=== PATIENT | female | born 1935 | race Caucasian/White ===

== ENCOUNTER 2018-07-06 16:49 | Inpatient (IN) | payer OTHER ==
[2018-07-06] VITALS (12 sets, daily range): BP systolic 42–156; BP diastolic 24–87
[~2018-07-06] VITALS: Ht 167.6 cm; Wt 37.2 kg
--- NOTE | 2018-07-06 16:49 | NUR ---
PT [facility] FOR MORE ALTERED THAN NORMAL AND HYPOTENSION, PT IS AAOX0, NOTED BP OF 99/64, MECH DEPENDENT, HOOKED TO MONITOR, KEPT RESTED AND COMFORTABLE, WILL CONTINUE TO MONITOR.
[2018-07-06] MEDS ORDERED: PIPERACILLIN /TAZOBACTAM 3.375 G in IV D5W 50 ML IV ONE (17:00)
[2018-07-06] MEDS ORDERED: VANCOMYCIN 500 MG VIAL IV ONE (17:00)
[2018-07-06] MEDS ORDERED: IV NS 0.9% 1,000 ML BAG IV ONE (17:00)
--- NOTE | 2018-07-06 17:00 | NUR ---
SEEN AND EXAMINED BY DR. KANG.
--- NOTE | 2018-07-06 17:10 | NUR ---
RT AT BEDSIDE FOR MECH VENT SET UP.
--- NOTE | 2018-07-06 17:13 | NUR ---
RT Pt received from facility altered and for hypotension. Received trach'd and placed on [facility] vent w charted settings. Vent plugged into red outlet w [facility]. Alarms are set and audible. Trach is patent and secure. Pt tolerating settings well. Will continue to monitor. Addendum: 07/06/18 at 1828 by KATH THOMAS RT Amended: Links added.
[2018-07-06] MEDS ORDERED: DEXTROSE 50%-WATER 50 ML DISP.SYRIN ONE (17:23)
--- NOTE | 2018-07-06 17:25 | NUR ---
LABS DRAWNED AND SENT TO LAB.
[2018-07-06] MEDS ORDERED: IV D5/0.45 NACL 1,000 ML IV ONE (17:30)
[2018-07-06] MEDS ORDERED: DEXTROSE 50%-WATER 50 ML DISP.SYRIN IVP ONE (17:30)
[2018-07-06] MEDS ORDERED: GLUCAGON,HUMAN RECOMBINANT 1 MG/VIAL VIAL IV ONE (17:30)
[2018-07-06 17:31] LABS: EOSINOPHILS % (AUTO) 0.3 % (0.0-6.0); HEMATOCRIT 22 % (33-45); HEMOGLOBIN 7.2 g/dL (11.5-14.8); LYMPHOCYTES % (AUTO) 8.8 % (20.0-44.0); MEAN CORPUSCULAR HGB CONC 33 g/dl (31.0-36.0); MEAN CORPUSCULAR VOLUME 95 fL (82-100); MONOCYTES # (AUTO) 0.5 /CMM (0.1-1.30); MONOCYTES % (AUTO) 2.2 % (2.0-12.0); NEUTROPHILS # (AUTO) 20.2 /CMM (1.8-8.9); NEUTROPHILS % (AUTO) 88.7 % (43.0-81.0); PLATELET COUNT (AUTO) 72 /CMM (150-450); RED BLOOD CELL COUNT(AUTO) 2.31 MIL/uL (4.0-5.2); WHITE BLOOD COUNT (AUTO) 22.7 K/uL (4.3-11.0)
[2018-07-06] MEDS ORDERED: GLUCAGON,HUMAN RECOMBINANT 1 MG/VIAL VIAL ONE (17:33)
[2018-07-06] MEDS ORDERED: WATER FOR INJECTION,STERILE 10 ML ONE (17:33)
[2018-07-06] MEDS ORDERED: MULT-447 GT (17:41)
[2018-07-06] MEDS ORDERED: DOCU50LI GT (17:41)
[2018-07-06] MEDS ORDERED: ACET650S26 GT ×2 (17:41)
[2018-07-06] MEDS ORDERED: INSU100V7 SQ (17:41)
[2018-07-06] MEDS ORDERED: VALP250S4 GT (17:41)
[2018-07-06] MEDS ORDERED: LANS30CA56 GT (17:41)
[2018-07-06] MEDS ORDERED: IPRA3AMP23 IH ×2 (17:41)
[2018-07-06] MEDS ORDERED: BISA10SU8 RC (17:41)
[2018-07-06] MEDS ORDERED: AMIN30LI27 GT (17:41)
[2018-07-06] MEDS ORDERED: ZINC220C6 GT (17:41)
[2018-07-06] MEDS ORDERED: NUT.237L30 GT (17:41)
[2018-07-06] MEDS ORDERED: BLOO-668 IN (17:41)
[2018-07-06] MEDS ORDERED: ACET-2605 GT (17:41)
[2018-07-06] MEDS ORDERED: INSU100V27 SQ (17:41)
[2018-07-06] MEDS ORDERED: LISI2.5T2 GT (17:41)
[2018-07-06] MEDS ORDERED: MAGN400O6 GT (17:41)
[2018-07-06] MEDS ORDERED: VIT500LI GT (17:41)
[2018-07-06 17:45] LABS: ALANINE AMINOTRANSFERASE 35 U/L (12-78); ALBUMIN 1.7 g/dL (3.4-5.0); ALKALINE PHOSPHATASE 161 U/L (46-116); ASPARTATE AMINOTRANSFERASE 75 U/L (15-37); BILIRUBIN,DIRECT 0.2 mg/dL (0.0-0.2); BILIRUBIN,TOTAL 0.3 mg/dL (0.2-1.0); CALCIUM, SERUM 7.5 mg/dL (8.5-10.1); CARBON DIOXIDE 30 mmol/L (21-32); CHLORIDE 97 mmol/L (98-107); CREATININE 1.2 mg/dL (0.6-1.3); GLUCOSE 51 mg/dL (74-106); POTASSIUM 4.3 mmol/L (3.5-5.1); SODIUM SERUM 134 mmol/L (136-145); TOTAL PROTEIN, SERUM 5.6 g/dL (6.4-8.2)
[2018-07-06 17:46] LABS: UREA NITROGEN, BLOOD 123 mg/dL (7-18)
--- NOTE | 2018-07-06 17:49 | NUR ---
STUDENT UNION CONSULTANT AT BEDSIDE FOR XRAY.
[2018-07-06] MEDS ORDERED: VANCOMYCIN 500 MG in IV D5W 100ml IV ONE (18:00)
--- NOTE | 2018-07-06 18:03 | NUR ---
REPEAT BLOOD GLUCOSE 244 DR. KANG AWARE.
--- NOTE | 2018-07-06 18:38 | NUR ---
EGAN CATH INSERTED BUT NO URINE OUTPUT COLLECTED DR. JORGE LUIS MAYFIELD.
--- NOTE | 2018-07-06 19:00 | NUR ---
FIO2 DECREASED TO 40% DUE TO INCREASED SPO2. RN NOTIFIED Addendum: 07/07/18 at 0013 by LUIS FERNANDO ROSE RT Amended: Links added.
--- NOTE | 2018-07-06 19:15 | NUR ---
REPORT GIVEN TO MARTÍN HALL FOR [facility].
[2018-07-06 19:19] LABS: BAND % (MANUAL) 10 % (0.0-5.0); LYMPHOCYTES % (MANUAL) 9 % (16-48); MONOCYTES % (MANUAL) 5 % (0-11.0); NEUTROPHILS % (MANUAL) 76 (42-76)
--- NOTE | 2018-07-06 19:20 | NUR ---
RECEIVED REPORT FROM АНДРЕЙ RESENDIZ FOR [facility]
[2018-07-06] MEDS ORDERED: IV NS 0.9% 1,000 ML IV PRN ×4 (20:00→21:30)
--- NOTE | 2018-07-06 20:00 | NUR ---
BROUGHT BY RADIOLOGY FOR CT PER ACLS PROTOCOL
--- NOTE | 2018-07-06 20:00 | NUR ---
PT TRANSPORTED TO AND FROM CT WITH RN. Addendum: 07/07/18 at 0013 by LUIS FERNANDO ROSE RT Amended: Links added.
[2018-07-06] MEDS ORDERED: ACETAMINOPHEN 325 MG TABLET PO PRN (21:00)
[2018-07-06] MEDS ORDERED: ONDANSETRON HCL/PF 4 MG/2 ML VIAL IVP PRN (21:00)
[2018-07-06] MEDS ORDERED: VANCOMYCIN 1 GM in IV D5W 250 ML IV SCH (21:00)
[2018-07-06] MEDS ORDERED: MAGNESIUM HYDROXIDE 30 ML UDC PO PRN (21:00)
[2018-07-06] MEDS ORDERED: MISCELLANEOUS MED 1 EA EA GT PRN (21:00)
[2018-07-06] MEDS ORDERED: MAG HYDROX/AL HYDROX/SIMETH 30 ML UDC PO PRN (21:00)
[2018-07-06] MEDS ORDERED: GLUCERNA 1.2 1,000 ML BOTTLE GT SCH (21:00)
[2018-07-06] MEDS ORDERED: HYDROCODONE/APAP 5/325MG 1 EACH TABLET PO PRN (21:00)
[2018-07-06] MEDS: ALBUTEROL FS 2.5 MG/3 ML VIAL.NEB NEB SCH (21:00)
[2018-07-06] MEDS ORDERED: ZOLPIDEM TARTRATE 5 MG TABLET PO PRN (21:00)
[2018-07-06] MEDS ORDERED: BISACODYL SUPP (10 MG) 10 MG/SUPP.RECT SUPP.RECT RC PRN (21:00)
[2018-07-06] MEDS ORDERED: Z GUARD REMEDY 2 OZ OINT TP PRN (21:00)
[2018-07-06] MEDS ORDERED: INSULIN REGULAR, HUMAN 100 UNIT/ML 3 ML VIAL SQ PRN (21:30)
[2018-07-06] MEDS ORDERED: PANTOPRAZOLE 80 MG in IV NS 0.9% 100 ML IV ONE (21:30)
[2018-07-06] MEDS ORDERED: DEXTROSE 50%-WATER 50 ML DISP.SYRIN IV PRN (21:30)
[2018-07-06] MEDS ORDERED: PANTOPRAZOLE 80 MG in IV NS 0.9% 500 ML IV SCH (21:30)
[2018-07-06 21:38] LABS: EOSINOPHILS % (AUTO) 0.6 % (0.0-6.0); HEMATOCRIT 23 % (33-45); HEMOGLOBIN 7.4 g/dL (11.5-14.8); LYMPHOCYTES # (AUTO) 1.4 /CMM (0.8-4.8); LYMPHOCYTES % (AUTO) 7.8 % (20.0-44.0); MEAN CORPUSCULAR HGB CONC 33 g/dl (31.0-36.0); MEAN CORPUSCULAR VOLUME 96 fL (82-100); MONOCYTES # (AUTO) 0.6 /CMM (0.1-1.30); MONOCYTES % (AUTO) 3.2 % (2.0-12.0); NEUTROPHILS # (AUTO) 16.3 /CMM (1.8-8.9); NEUTROPHILS % (AUTO) 88.4 % (43.0-81.0); PLATELET COUNT (AUTO) 56 /CMM (150-450); RED BLOOD CELL COUNT(AUTO) 2.34 MIL/uL (4.0-5.2); WHITE BLOOD COUNT (AUTO) 18.5 K/uL (4.3-11.0)
--- NOTE | 2018-07-06 22:18 | NUR ---
GAVE REPORT TO GAGE RESENDIZ FOR [facility]
[2018-07-06] MEDS ORDERED: IPRATROPIUM NEB FS 0.5 MG/2.5 ML AMPUL.NEB NEB PRN (22:30)
[2018-07-06] MEDS ORDERED: ALBUTEROL FS 2.5 MG/0.5 ML VIAL.NEB NEB PRN (22:30)
--- NOTE | 2018-07-06 22:30 | NUR ---
PT TRANSPORTED TO ICU WITH RN. PT VENTILATED WITH AMBU BAG Addendum: 07/07/18 at 0013 by LUIS FERNANDO ROSE RT Amended: Links added.
--- NOTE | 2018-07-06 22:41 | NUR ---
TRANSFERRED PT TO ICU 261 PER ACLS PROTOCOL
[2018-07-06] MEDS ORDERED: NOREPINEPHRINE 4 MG/4 ML AMPUL IV ONE (22:58)
[2018-07-06] MEDS: NOREPINEPHRINE 16 MG in IV D5W 500 ML IV PRN (23:10)
[2018-07-06] MEDS: BLOOD SUGAR DIAGNOSTIC 1 EACH STRIP IN SCH (23:36)
[2018-07-06] MEDS: PANTOPRAZOLE 40 MG VIAL IV SCH (23:48)
[2018-07-07] VITALS (68 sets, daily range): BP systolic 47–158; BP diastolic 15–86
[2018-07-07] MEDS ORDERED: PIPERACILLIN /TAZOBACTAM 4.5 G in IV D5W 50 ML IV SCH ×2
--- NOTE | 2018-07-07 00:13 | NUR ---
PEEP DC DUE TO DECREASED BLOOD PRESSURE. RN NOTIFIED Addendum: 07/07/18 at 0013 by LUIS FERNANDO ROSE RT Amended: Links added.
[2018-07-07 00:52] LABS: CALCIUM, SERUM 6.6 mg/dL (8.5-10.1); CARBON DIOXIDE 20 mmol/L (21-32); CHLORIDE 98 mmol/L (98-107); CREATININE 1.3 mg/dL (0.6-1.3); GLUCOSE 213 mg/dL (74-106); POTASSIUM 4.4 mmol/L (3.5-5.1); SODIUM SERUM 131 mmol/L (136-145)
[2018-07-07 00:55] LABS: UREA NITROGEN, BLOOD 109 mg/dL (7-18)
[2018-07-07] MEDS ORDERED: PIPERACILLIN /TAZOBACTAM 3.375 G VIAL IV ONE ×2 (00:55→04:43)
[2018-07-07] MEDS: PIPERACILLIN /TAZOBACTAM 3.375 G in IV D5W 50 ML IV SCH ×2 (00:57→05:51)
[2018-07-07] MEDS: BLOOD SUGAR DIAGNOSTIC 1 EACH STRIP IN SCH ×3 (01:11→09:08)
[2018-07-07] MEDS ORDERED: PHENYLEPHRINE 10 MG/ML VIAL ONE (02:47)
[2018-07-07] MEDS: PHENYLEPHRINE 80 MG in IV NS 0.9% 250 ML IV PRN ×3 (02:52→11:56)
[2018-07-07] MEDS ORDERED: NOREPINEPHRINE 4 MG/4 ML AMPUL IV ONE (04:48)
[2018-07-07 05:10] LABS: BASOPHILS # (AUTO) 0.1 /CMM (0.0-0.2); BASOPHILS % (AUTO) 0.5 % (0.0-2.0); EOSINOPHILS % (AUTO) 0.1 % (0.0-6.0); HEMATOCRIT 36 % (33-45); HEMOGLOBIN 11.6 g/dL (11.5-14.8); LYMPHOCYTES # (AUTO) 1.4 /CMM (0.8-4.8); LYMPHOCYTES % (AUTO) 8.3 % (20.0-44.0); MEAN CORPUSCULAR HGB CONC 32 g/dl (31.0-36.0); MEAN CORPUSCULAR VOLUME 98 fL (82-100); MONOCYTES # (AUTO) 1.3 /CMM (0.1-1.30); MONOCYTES % (AUTO) 7.8 % (2.0-12.0); NEUTROPHILS # (AUTO) 13.9 /CMM (1.8-8.9); NEUTROPHILS % (AUTO) 83.3 % (43.0-81.0); RED BLOOD CELL COUNT(AUTO) 3.68 MIL/uL (4.0-5.2); WHITE BLOOD COUNT (AUTO) 16.7 K/uL (4.3-11.0)
[2018-07-07 05:29] LABS: CALCIUM, SERUM 6.7 mg/dL (8.5-10.1); CARBON DIOXIDE 19 mmol/L (21-32); CHLORIDE 96 mmol/L (98-107); CREATININE 1.3 mg/dL (0.6-1.3); GLUCOSE 166 mg/dL (74-106); MAGNESIUM 2.7 mg/dL (1.8-2.4); PHOSPHORUS 6.5 mg/dL (2.5-4.9); POTASSIUM 4.9 mmol/L (3.5-5.1); SODIUM SERUM 133 mmol/L (136-145)
[2018-07-07 05:30] LABS: UREA NITROGEN, BLOOD 110 mg/dL (7-18)
[2018-07-07] MEDS: NOREPINEPHRINE 16 MG in IV D5W 500 ML IV PRN ×2 (05:30→11:55)
[2018-07-07] MEDS ORDERED: VASOPRESSIN INJ 20 UNIT/ML VIAL ONE (05:43)
[2018-07-07 05:47] LABS: PLATELET COUNT (AUTO) 46 /CMM (150-450)
[2018-07-07 06:03] LABS: BAND % (MANUAL) 35 % (0.0-5.0); LYMPHOCYTES % (MANUAL) 12 % (16-48); MONOCYTES % (MANUAL) 9 % (0-11.0); NEUTROPHILS % (MANUAL) 35 (42-76)
[2018-07-07 06:04] LABS: METAMYELOCYTES % 6 % (0-0); MYELOCYTES % 3 % (0-0)
[2018-07-07] MEDS: VASOPRESSIN INJ 50 UNIT in IV D5W 497.5 ML IV PRN ×2 (06:06→11:57)
[2018-07-07] MEDS ORDERED: IV NS 0.9% 1,000 ML IV PRN (06:30)
[2018-07-07 07:23] LABS: APPEARANCE,URINE CLOUDY (CLEAR); BILIRUBIN,URINE NEGATIVE (NEGATIVE); BLOOD, URINE 2+ Ery/uL (NEGATIVE); KETONES,URINE NEGATIVE (NEGATIVE); LEUKOCYTE ESTERASE ,URINE TRACE (NEGATIVE); NITRITE, URINE NEGATIVE (NEGATIVE); PROTEIN,URINE 3+ mg/dl (NEGATIVE); UGLUCOSE TRACE mg/dL (NEGATIVE); UROBILINOGEN,URINE 0.2 EU/dL (0.2)
[2018-07-07 07:27] LABS: COLOR,URINE DARK YELLOW (YELLOW)
--- NOTE | 2018-07-07 07:30 | NUR ---
ICU/RN: Pt received, hypotensive on max pressors. Unable to complete full assessment and turn dt hemodynamic instability.
[2018-07-07 07:33] LABS: BACTERIA,URINE Moderate /HPF (None Seen); SQUAMOUS EPITHELIAL CELL,UR Few /HPF (None Seen)
--- NOTE | 2018-07-07 07:47 | NUR ---
WOUND CARE CONSULT: PT UNSTABLE FOR SKIN ASSESSMENT AT THIS TIME. PT ON NOREEN ISOFLEX LOW AIRLOSS BED. SKIN PROTECTION RECOMMENDATIONS IN PLACE AND DISCUSSED WITH NURSING STAFF. CURRENT DRU SCORE IS 8. WILL SEE PT PT CONDITION PERMITS. Addendum: 07/07/18 at 0752 by ALESHIA SOTO WNDNU ADMISSION PHOTOS REVIEWED AND RECOMMENDATIONS FOR WOUND CARE MADE BASED ON PHOTOS.
[2018-07-07] MEDS ORDERED: FEE PK DOSING 1 MIN EA MC ONE (07:53)
[2018-07-07] MEDS: ALBUTEROL FS 2.5 MG/3 ML VIAL.NEB NEB SCH ×2 (07:53→11:31)
[2018-07-07] MEDS ORDERED: VANCOMYCIN 0.75 GM in IV D5W 250 ML IV SCH (08:00)
[2018-07-07] MEDS ORDERED: HYDROGEL DRESSING 90 GM TUBE TP PRN (08:00)
[2018-07-07] MEDS ORDERED: ACETAMINOPHEN 650 MG/20.3 ML UDC GT PRN (08:00)
--- NOTE | 2018-07-07 08:00 | NUR ---
ICU/RN: Pt in critical condition and is not responding to full aggressive treatment on max dose of multiple pressors, vent support. Pending blood transfusion, with possible GI bleed; noted with dark red gastric output with foul smell. Generalized anasarca with weak peripheral and femoral pulses. Pending a-line and PICC line placement, nsg umbrella supervisor notified. Multiple calls placed to next of kin and person to notify on chart. Awaiting call back since pt admission.
[2018-07-07 08:43] LABS: BASOPHILS # (AUTO) 0.1 /CMM (0.0-0.2); BASOPHILS % (AUTO) 0.5 % (0.0-2.0); EOSINOPHILS % (AUTO) 0.2 % (0.0-6.0); HEMATOCRIT 30 % (33-45); LYMPHOCYTES # (AUTO) 1.6 /CMM (0.8-4.8); LYMPHOCYTES % (AUTO) 8.2 % (20.0-44.0); MEAN CORPUSCULAR HGB CONC 33 g/dl (31.0-36.0); MEAN CORPUSCULAR VOLUME 96 fL (82-100); MONOCYTES # (AUTO) 1.3 /CMM (0.1-1.30); MONOCYTES % (AUTO) 6.7 % (2.0-12.0); NEUTROPHILS # (AUTO) 16.4 /CMM (1.8-8.9); NEUTROPHILS % (AUTO) 84.4 % (43.0-81.0); RED BLOOD CELL COUNT(AUTO) 3.13 MIL/uL (4.0-5.2); WHITE BLOOD COUNT (AUTO) 19.4 K/uL (4.3-11.0)
[2018-07-07 08:44] LABS: PLATELET COUNT (AUTO) 35 /CMM (150-450)
[2018-07-07] MEDS ORDERED: HYDROGEL DRESSING 90 GM TUBE TP SCH (09:00)
[2018-07-07] MEDS ORDERED: Medication Not On Formulary EA (Lansoprazole 30 MG) GT SCH (09:00)
[2018-07-07] MEDS ORDERED: ACETAMINOPHEN 650 MG/20.3 ML UDC GT SCH (09:00)
[2018-07-07] MEDS ORDERED: PROSTAT (PYXIS) 30 ML UDC GT SCH (09:00)
[2018-07-07] MEDS ORDERED: ZINC SULFATE 220 MG CAPSULE GT SCH (09:00)
[2018-07-07] MEDS ORDERED: VALPROIC ACID 250 MG/5 ML UDC GT SCH (09:00)
[2018-07-07 09:01] LABS: ABG BASE EXCESS -10.1 mmol/L; ABG OXYGEN SATURATION 81.8 % (92.0-98.5); ABG PCO2 26.1 mmHg (35.0-45.0); ABG PO2 47.7 mmHg (75.0-100.0); AaDO2 639.2 mmHg; COHb 0.4 % (0.5-1.5); MetHb 0.6 % (0.0-1.5); SITE, ABG Right Femoral; VT, ABG 450 mL
[2018-07-07] MEDS ORDERED: IV NS 0.9% 1,000 ML BAG IV STA (09:02)
[2018-07-07] MEDS: PANTOPRAZOLE 40 MG VIAL IV SCH (09:09)
--- NOTE | 2018-07-07 09:15 | NUR ---
ICU/RN: Blood transfusion ongoing, no AE noted. Dr Alcazar at bedside, updated on pt status. New orders noted and carried out.
[2018-07-07 09:35] LABS: D-DIMER 6.4 mg/L(FEU (0.17-0.50)
[2018-07-07] MEDS ORDERED: HYDROCORTISONE SOD SUCCINATE 100 MG/2 ML VIAL IV SCH (10:00)
--- NOTE | 2018-07-07 10:30 | NUR ---
ICU/RN: Multiple attempts for a-line placement by Dr Beltran; unable to insert. Per MD, "Will try again at later time. Will also insert central line."
[2018-07-07 11:54] LABS: ABG BASE EXCESS -13.5 mmol/L; ABG OXYGEN SATURATION 44.5 % (92.0-98.5); ABG PCO2 37.3 mmHg (35.0-45.0); ABG PH 7.188 (7.350-7.450); ABG PO2 27.2 mmHg (75.0-100.0); AaDO2 648.5 mmHg; COHb 1.1 % (0.5-1.5); MetHb 0.9 % (0.0-1.5); O2Hb 43.6 % (94.0-97.0); PEEP,BG 5 cm H2O; SITE, ABG Left Femoral; VT, ABG 450 mL
[2018-07-07] MEDS ORDERED: VANCOMYCIN 500 MG in IV D5W 100ml IV SCH (12:00)
--- NOTE | 2018-07-07 13:45 | NUR ---
S/P CODE BLUE Pt coded from 1250 - 1319; noted bradycardic on monitor with subsequent asystole during central line insertion with Dr Beltran. Code blue called, lead by Dr Beltran. spoke to Alexander, son and Dr Mena regarding pt's grave condition. Notified of pt expiration 1319. Nursing city supervisor aware. Ernesto [employer] sales representative stated "not a [employer] sales representative's case." [facility] [employer] called; notified of pt expiration. Spoke with Laura, Case #[id number]
[2018-07-07] MEDS ORDERED: SODIUM BICARBONATE SYR 50 MEQ/50 ML DISP.SYRIN IV ONE (14:14)
[2018-07-07] MEDS ORDERED: EPINEPHRINE (1:10,000) SYRINGE 1 MG/10 ML DISP.SYRIN IVP ONE (14:14)
[2018-07-07] MEDS ORDERED: DEXTROSE 50%-WATER 50 ML DISP.SYRIN IV ONE (14:14)
== END 2018-07-07 17:57 | disposition expired | DRG 871 ==
LOC: ER 16:57 → TELE-TD 21:22 → ICU 22:24
PROVIDERS: ADMIT Internal Medicine; ATTEND Internal Medicine
PROC: 5A1945Z Respiratory Ventilation, 24-96 Consecutive Hours (ICD-10-PCS; principal; 2018-07-06)
PROC: 30233P1 Transfusion of Nonautologous Frozen Red Cells into Peripheral Vein, Percutaneous Approach (ICD-10-PCS; 2018-07-07)
DX: A41.9 Sepsis, unspecified organism (principal); R65.21 Severe sepsis with septic shock; J18.9 Pneumonia, unspecified organism; G93.41 Metabolic encephalopathy; K29.61 Other gastritis with bleeding; J96.21 Acute and chronic respiratory failure with hypoxia; E87.2 Acidosis; Z99.11 Dependence on respirator [ventilator] status; E46 Unspecified protein-calorie malnutrition; Z68.1 Body mass index [BMI] 19.9 or less, adult; N39.0 Urinary tract infection, site not specified; N17.9 Acute kidney failure, unspecified; J44.0 Chronic obstructive pulmonary disease with (acute) lower respiratory infection; Z93.0 Tracheostomy status; Z93.1 Gastrostomy status; Z86.73 Personal history of transient ischemic attack (TIA), and cerebral infarction without residual deficits; E11.649 Type 2 diabetes mellitus with hypoglycemia without coma; I10 Essential (primary) hypertension; D69.6 Thrombocytopenia, unspecified; D64.9 Anemia, unspecified; Z95.0 Presence of cardiac pacemaker; J44.9 Chronic obstructive pulmonary disease, unspecified; G40.909 Epilepsy, unspecified, not intractable, without status epilepticus; Z86.718 Personal history of other venous thrombosis and embolism; G30.9 Alzheimer's disease, unspecified; F02.80 Dementia in other diseases classified elsewhere, unspecified severity, without behavioral disturbance, psychotic disturbance, mood disturbance, and anxiety; L30.4 Erythema intertrigo; L98.8 Other specified disorders of the skin and subcutaneous tissue
CPT/HCPCS: 36415; 36600; 70450-TC; 71045-TC; 80048-TC; 80076-TC; 81000-TC; 82803-TC; 82962-TC; 83605-TC; 83735-TC; 84100-TC; 84484-TC; 85025-TC; 85396; 85730-TC; 86850-TC; 86921-TC; 87040-TC; 87081-TC; 87086-TC; 92950-TC; 94002-TC; 94003-TC; 99082-TC; A6248; A6403; C1751; C9113; G0378; J0171; J1610; J1720; J1815; J2370; J2543; J3370; J3490; J7030; J7040; J7050; J7060; P9016-BL